=== PATIENT | female | born 2000 ===

== ENCOUNTER 2018-04-18 19:43 | Emergency (ER) | payer OTHER ==
[~2018-04-18] VITALS: Ht 152.4 cm; Wt 55.3 kg
[~2018-04-18 19:43] MED LIST: DICLOFENAC POTA50 MG PO; SKELAXIN800 MG PO
== END 2018-04-18 22:24 | disposition home or self-care (01) ==
LOC: ER 19:43
DX: L27.1 Localized skin eruption due to drugs and medicaments taken internally (principal); T36.0X5A Adverse effect of penicillins, initial encounter; J35.01 Chronic tonsillitis

== ENCOUNTER 2018-05-12 14:36 | Emergency (ER) | payer OTHER ==
[~2018-05-12] VITALS: Ht 152.4 cm; Wt 54.4 kg
[2018-05-12] MEDS ORDERED: KETO10TA2 PO (19:39)
[2018-05-12] MEDS ORDERED: CIPRO500 MG PO (19:39)
== END 2018-05-12 20:30 | disposition home or self-care (01) ==
LOC: ER 14:36
DX: K29.70 Gastritis, unspecified, without bleeding (principal); N39.0 Urinary tract infection, site not specified

== ENCOUNTER 2018-05-15 11:40 | Emergency (ER) | payer OTHER ==
[~2018-05-15] VITALS: Ht 152.4 cm; Wt 55.3 kg
[~2018-05-15 11:40] MED LIST changes: +CIPRO500 MG PO; +KETO10TA2 PO
== END 2018-05-15 17:38 | disposition home or self-care (01) ==
LOC: ER 11:40
DX: N39.0 Urinary tract infection, site not specified (principal)